=== PATIENT | male | born 1995 | race Two or more races ===

== ENCOUNTER 2020-09-02 19:10 | Emergency (ER) | payer BC, OTHER ==
[~2020-09-02] VITALS: Ht 167.6 cm; Wt 72.3 kg
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
--- NOTE | 2020-09-02 20:20 | NUR ---
pt to radiology
[2020-09-02] MEDS ORDERED: ONDANSETRON ODT 4 MG ONE (20:52)
[2020-09-02] MEDS ORDERED: HYDROcodone/APAP 5/325 TABLET ONE (20:52)
[2020-09-02] MEDS ORDERED: HYDROcodone/APAP 5/325 TABLET PO ONE (21:00)
[2020-09-02] MEDS ORDERED: ONDANSETRON ODT 4 MG PO ONE (21:00)
--- NOTE | 2020-09-02 21:00 | NUR ---
pt back from radiology, resting on gurney and denies needs at this time.
[2020-09-02 22:00] VITALS: BP 115/71
--- NOTE | 2020-09-02 22:59 | NUR ---
Patient given discharge instructions and they have confirmed that they understand the instructions. Patient ambulatory with steady gait.
== END 2020-09-02 23:01 | disposition home or self-care (01) ==
LOC: ED 20:30
DX: S16.1XXA Strain of muscle, fascia and tendon at neck level, initial encounter (principal); S46.012A Strain of muscle(s) and tendon(s) of the rotator cuff of left shoulder, initial encounter; V49.49XA Driver injured in collision with other motor vehicles in traffic accident, initial encounter; Y93.89 Activity, other specified; Y92.410 Unspecified street and highway as the place of occurrence of the external cause; Y99.8 Other external cause status
CPT/HCPCS: 70450; 72125; 73030; 99285; Q0162